=== PATIENT | male | born 1980 | race Caucasian/White ===

== ENCOUNTER 2019-12-25 13:21 | Outpatient (CLI) | payer OTHER ==
--- NOTE | 2019-12-25 16:17 | MRI Report ---
PROCEDURE: Lumbar Spine W/O INDICATIONS: DORSALGIA TECHNIQUE: Noncontrast sagittal T1 spin echo and T2 fast echo, sagittal STIR, axial T1 and T2 fast spin echo thr ough the lumbar spine. In cases with scoliosis, additional coronal T2 fast spin echo may be performe d. COMPARISON: None. FINDINGS: Image quality: Excellent. Alignment and Curvature: There is normal bony alignment. Bone Marrow: Marrow is of normal overall signal. Minimal reactive endplate changes are present at L3 -4 through L5-S1. No acute vertebral body compression fractures. Spinal Cord: Conus medullaris terminates at the L1 level. Visualized cord demonstrates normal signa l and size. Paraspinous Soft Tissues: No paravertebral masses. Discs: Moderate to severe desiccation is present from L3-4 through L5-S1. L1-L2: Minimal disc bulge without spinal stenosis or foraminal narrowing. Minimal epidural lipomat osis as well as mild ligamentum flavum hypertrophy. L2-L3: Minimal disc bulge without spinal stenosis. Minimal left foraminal narrowing. Minimal epidu ral lipomatosis and mild facet hypertrophy. L3-L4: Mild disc bulge with minimal canal narrowing. Minimal right foraminal narrowing. Minimal epi dural lipomatosis with mild ligamentum flavum hypertrophy. L4-L5: Mild disc bulge with minimal canal narrowing. Mild left foraminal narrowing with mild facet and ligamentum flavum hypertrophy. L5-S1: Minimal disc bulge without spinal stenosis or foraminal narrowing. IMPRESSION: 1. Minimal to mild early degenerative changes most notable at L4-5 demonstrating mild left foraminal narrowing secondary to early changes of facet/ligamentum flavum arthropathy. Reviewed by: Leah Hernandez MD on 12/25/2019 4:15 PM PDT Approved by: Leah Hernandez MD on 12/25/2019 4:15 PM PDT Station ID: [id number]
== END 2019-12-25 13:22 | disposition home or self-care (01) ==
LOC: DI 13:21
DX: M47.816 Spondylosis without myelopathy or radiculopathy, lumbar region (principal)
CPT/HCPCS: 72148